=== PATIENT | female | born 1940 | race Caucasian/White ===

== ENCOUNTER 2022-07-19 07:00 | Day surgery (SDC) | payer MEDICARE, OTHER, SELFPAY ==
[2022-07-13 14:59] VITALS: BMI 24.8
--- NOTE | 2022-07-15 13:11 | HO.ANESPROP2 ---
Documented by User: Cari Erickson NP 07/15/22 13:12 HPI - Anesthesia Eval Consult details Narrative: 82yo F for Left Cataract Extraction IOL Insertion PCP cleared No previous cataract on record [facility] Past Medical History Medical History (Updated 07/13/22 @ 14:54 by Alee Xie, RN) Acid reflux Bilateral hearing loss Elevated cholesterol History of COVID-19 Hx of colonic polyp Pre-diabetes Surgical History Surgical History (Updated 07/13/22 @ 14:51 by Alee Xie RN) History of ear surgery History of meniscectomy of left knee History of tonsillectomy Hx of colonoscopy Social History Social History Are you a primary child care education coordinator to a significant other at home: No Do you presently have visiting nurse or other home services: No Patient Tobacco Use Status: Former Tobacco user Quit Date: 40 yrs ago Tobacco use type: Cigarette Second Hand Smoke Exposure: No Use of substances other than those prescribed or required for medical reasons: No Have you been hit, kicked, punched, or otherwise hurt by someone within the past year? If so, by whom?: No Are you DNR?: No Advance Directives: No Advance Directives Information Provided: Yes Advance Directives on File: No Recently lost weight without trying: No Eating poorly because of decreased appetite: No Nutrition Risks: No Nutritional Risk Patient : No Meds Allergies Allergy/AdvReac Type Severity Reaction Status Date / Time kiwi Allergy Unknown Verified 07/16/22 08:43 strawberry Allergy Unknown Verified 07/16/22 08:43 Sulfa (Sulfonamide Allergy Unknown Verified 07/16/22 08:42 Antibiotics) Home Medications Medication Instructions Recorded Confirmed Last Taken Type cholecalciferol (vitamin D3) 25 25 mcg PO DAILY 07/13/22 07/13/22 Unknown History mcg (1,000 unit) tablet (Vitamin D3) conjugated estrogens 0.625 mg/gram vaginal DAILY PRN as directed 07/13/22 Unknown History vaginal cream (Premarin) cyanocobalamin (vitamin B-12) 1,000 mcg PO DAILY 07/13/22 07/13/22 Unknown History 1,000 mcg tablet (Vitamin B-12) famotidine 20 mg tablet 1 tab PO BEDTIME 07/13/22 07/13/22 Unknown History Exam Exam Date and Time: July 15, 2022 1311 Height,Weight and Vital Signs: Height 5 ft 2 in Weight 61.689 kg Assessment and Plan Assessment Anesthesia Assessment: Chart Reviewed Documented by User: Josseline Perla MD 07/19/22 07:16 [facility] Past Medical History Medical History (Updated 07/13/22 @ 14:54 by Alee Xie, RN) Acid reflux Bilateral hearing loss Elevated cholesterol History of COVID-19 Hx of colonic polyp Pre-diabetes Family History Family history of problems with anesthesia: No Surgical History Surgical History (Updated 07/13/22 @ 14:51 by Alee Xie, RN) History of ear surgery History of meniscectomy of left knee History of tonsillectomy Hx of colonoscopy History of Problems with Anesthesia: No Social History Social History Are you a primary child care education coordinator to a significant other at home: No Do you presently have visiting nurse or other home services: No Patient Tobacco Use Status: Former Tobacco user Quit Date: 40 yrs ago Tobacco use type: Cigarette Second Hand Smoke Exposure: No Use of substances other than those prescribed or required for medical reasons: No Have you been hit, kicked, punched, or otherwise hurt by someone within the past year? If so, by whom?: No Are you DNR?: No Advance Directives: No Advance Directives Information Provided: Yes Advance Directives on File: No Recently lost weight without trying: No Eating poorly because of decreased appetite: No Nutrition Risks: No Nutritional Risk Patient : No Meds Allergies Allergy/AdvReac Type Severity Reaction Status Date / Time kiwi Allergy Unknown Verified 07/16/22 08:43 strawberry Allergy Unknown Verified 07/16/22 08:43 Sulfa (Sulfonamide Allergy Unknown Verified 07/16/22 08:42 Antibiotics) Home Medications Medication Instructions Recorded Confirmed Last Taken Type cholecalciferol (vitamin D3) 25 25 mcg PO DAILY 07/13/22 07/13/22 Unknown History mcg (1,000 unit) tablet (Vitamin D3) conjugated estrogens 0.625 mg/gram vaginal DAILY PRN as directed 07/13/22 Unknown History vaginal cream (Premarin) cyanocobalamin (vitamin B-12) 1,000 mcg PO DAILY 07/13/22 07/13/22 Unknown History 1,000 mcg tablet (Vitamin B-12) famotidine 20 mg tablet 1 tab PO BEDTIME 07/13/22 07/13/22 Unknown History Exam Airway Mallampati Class: II (Caps laterally) TM Dist: >3cm Neck ROM: Full Heart: rrr Lungs: cta Assessment and Plan Assessment Anesthesia Assessment: Anesthesia Plan Discussed Final Anesthetic Review Family History of Problems with Anesthesia: No History of Problems with Anesthesia: No NPO: Yes ASA Class: II Final Preanesthetic Review: No Changes in Pt Med Stat, Meds/Allgs Chart Reviewed and Consent Obtained/Reviewed Patient Risk: Intermediate Procedure Risk: Intermediate Anesthetic Plan Anesthetic Plan: MAC: Disposition: Standard PACU
--- NOTE | 2022-07-16 12:33 | MHC.SHP ---
Pre-Procedural Eval Section A Date of Service: 07/16/22 The patient is an INPATIENT: No Changes since office visit: No Cold of Flu in the past 2 weeks, No New Medical Problems, No Changes in Medication and No Patient answered all questions The History & Physical has been completed within 30 days and I have reviewed it.: Yes Section B Chief Complaint: Age-related nuclear cataract, left eye Allergies: Allergies Allergy/AdvReac Type Severity Reaction Status Date / Time kiwi Allergy Unknown Verified 07/16/22 08:43 strawberry Allergy Unknown Verified 07/16/22 08:43 Sulfa (Sulfonamide Allergy Unknown Verified 07/16/22 08:42 Antibiotics) Plan Diagnosis/Plan: Unchanged I have reviewed the history and physical and performed a pertinent physical examination on my patient. No changes have occurred unless specified.
[2022-07-19] MEDS: Tetracaine HCl/PF 0.5% Oph Sol 4 ML DROPS 1 DROP EYE-LEFT (07:22)
[2022-07-19] MEDS: Cyclopentolate 1 % Ophth Sol 2 ML DRPBTL 1 DROP EYE-LEFT ×3 (07:24→07:32)
[2022-07-19] MEDS: Tropicamide 1 % Ophth Sol 3 ML BTL 1 DROP EYE-LEFT ×3 (07:25→07:33)
[2022-07-19] MEDS: Ketorolac Tromethamine 0.5% Op 5 ML DROPS 1 DROP EYE-LEFT ×3 (07:26→07:34)
[2022-07-19] MEDS: Phenylephrine HCL 2.5% Oph SoL 2 ML BOTTLE 1 DROP EYE-LEFT ×3 (07:27→07:35)
[2022-07-19 07:40] VITALS: BP 156/72; PULSE 70; RESP 16; TEMP 36.4; O2SAT 98
[2022-07-19] MEDS: Lactated Ringers 500 ML 50 ML IV (07:41)
--- NOTE | 2022-07-19 08:02 | HO.PNOPHT ---
Ophthalmology Procedure Procedure Date of Service: 07/19/22 Ophthalmology Viscoelastic: Healjose antonio Avilest Dual Pack Pro Ophthalmology Lenses: TECPOPEYE [id number] (22) Procedure Notes: PREOPERATIVE DIAGNOSIS: Decreased visual acuity left eye secondary to cataract POSTOPERATIVE DIAGNOSIS: Same PROCEDURE: Left cataract extraction with intraocular lens insertion SURGEON: Quang Lopez M.D. ANESTHESIA: Topical/MAC ESTIMATED BLOOD LOSS: None COMPLICATIONS: None After obtaining informed consent, the patient was brought to the operation room suite and placed in the supine position. After adequate sedation per anesthesia, topical drops of Tetracaine were given to the left eye. The eye was then prepped and draped in the usual sterile fashion. The operating room microscope was then positioned over the operative eye and a lid speculum placed. A paracentesis was created. Viscoelastic was then instilled into the anterior chamber. A three plane incision was then created temporally, utilizing a 2.85 mm keratome. Capsulotomy forceps were then utilized to create a circular tear capsulotomy. Hydrodissection and hydrodelineation were carried out until adequate mobilization of the nucleus occurred. Phacoemulsification was then utilized to remove the dense central nucleus followed by removal of the cortical material utilizing the automated aspiration irrigation unit. Viscoat elastic was instilled into the posterior capsular bag followed by placement of a posterior chamber intraocular lens without difficulty. The residual Viscoat elastic was then removed utilizing the automated IA machine. The wound was check and found to be watertight. The patient tolerated the procedure well and the lid speculum was removed. Intracameral injection of Vigamox 0.1 mL followed by a subtenon injection of Kenalog-40 0.2 mL were administered. The patient will be seen in the a.m.
[2022-07-19 08:29] VITALS: BP 164/73; PULSE 64; RESP 18; TEMP 36.3; O2SAT 99
== END 2022-07-19 08:32 | disposition home or self-care (01) ==
PROVIDERS: PCP Nurse Practitioner Family; Visit Provider Ophthalmology
PROC: (CPT 66985; principal; 2022-07-19 09:10)
DX: H25.12 Age-related nuclear cataract, left eye (principal); H54.7 Unspecified visual loss; K21.9 Gastro-esophageal reflux disease without esophagitis; E78.00 Pure hypercholesterolemia, unspecified; M85.80 Other specified disorders of bone density and structure, unspecified site; R73.03 Prediabetes; Z79.899 Other long term (current) drug therapy; Z88.2 Allergy status to sulfonamides; Z86.16 Personal history of COVID-19; Z87.891 Personal history of nicotine dependence
CPT/HCPCS: 66984; J2250; J3300; V2632

== ENCOUNTER 2022-08-02 06:23 | Day surgery (SDC) | payer MEDICARE, OTHER, SELFPAY ==
[2022-07-13 15:02] VITALS: BMI 24.8
--- NOTE | 2022-07-27 12:40 | HO.ANESPROP2 ---
Documented by User: Cari Erickson NP 07/27/22 12:49 HPI - Anesthesia Eval Consult details Narrative: 82yo F for Right Cataract Extraction IOL Insertion PCP cleared Left eye 07/19/22 with MAC: Midaz 2 [facility] Past Medical History Medical History (Updated 07/13/22 @ 14:54 by Alee Xie, RN) Acid reflux Bilateral hearing loss Elevated cholesterol History of COVID-19 Hx of colonic polyp Pre-diabetes Family History Family history of problems with anesthesia: No Surgical History Surgical History (Updated 07/13/22 @ 14:51 by Alee Xie, SHEILA) History of ear surgery History of meniscectomy of left knee History of tonsillectomy Hx of colonoscopy History of Problems with Anesthesia: No Social History Social History Are you a primary client care representative to a significant other at home: No Do you presently have visiting nurse or other home services: No Patient Tobacco Use Status: Former Tobacco user Quit Date: 40 yrs ago Tobacco use type: Cigarette Second Hand Smoke Exposure: No Use of substances other than those prescribed or required for medical reasons: No Have you been hit, kicked, punched, or otherwise hurt by someone within the past year? If so, by whom?: No Are you DNR?: No Advance Directives: No Advance Directives Information Provided: Yes Advance Directives on File: No Recently lost weight without trying: No Eating poorly because of decreased appetite: No Nutrition Risks: No Nutritional Risk Meds Allergies Allergy/AdvReac Type Severity Reaction Status Date / Time kiwi Allergy Unknown Verified 07/16/22 08:43 strawberry Allergy Unknown Verified 07/16/22 08:43 Sulfa (Sulfonamide Allergy Unknown Verified 07/16/22 08:42 Antibiotics) Home Medications Medication Instructions Recorded Confirmed Last Taken Type cholecalciferol (vitamin D3) 25 25 mcg PO DAILY 07/13/22 07/13/22 Unknown History mcg (1,000 unit) tablet (Vitamin D3) conjugated estrogens 0.625 mg/gram vaginal DAILY PRN as directed 07/13/22 Unknown History vaginal cream (Premarin) cyanocobalamin (vitamin B-12) 1,000 mcg PO DAILY 07/13/22 07/13/22 Unknown History 1,000 mcg tablet (Vitamin B-12) famotidine 20 mg tablet 1 tab PO BEDTIME 07/13/22 07/13/22 Unknown History Exam Exam Date and Time: July 27, 2022 1240 Height,Weight and Vital Signs: Height 5 ft 2 in Weight 61.689 kg Assessment and Plan Assessment Anesthesia Assessment: Chart Reviewed Final Anesthetic Review Family History of Problems with Anesthesia: No History of Problems with Anesthesia: No Documented by User: Josseline Perla MD 08/02/22 07:39 PMF[facility] Past Medical History Medical History (Updated 07/13/22 @ 14:54 by Alee Xie, RN) Acid reflux Bilateral hearing loss Elevated cholesterol History of COVID-19 Hx of colonic polyp Pre-diabetes Surgical History Surgical History (Updated 07/13/22 @ 14:51 by Alee Xie, RN) History of ear surgery History of meniscectomy of left knee History of tonsillectomy Hx of colonoscopy Social History Social History Are you a primary client care representative to a significant other at home: No Do you presently have visiting nurse or other home services: No Patient Tobacco Use Status: Former Tobacco user Quit Date: 40 yrs ago Tobacco use type: Cigarette Second Hand Smoke Exposure: No Use of substances other than those prescribed or required for medical reasons: No Have you been hit, kicked, punched, or otherwise hurt by someone within the past year? If so, by whom?: No Are you DNR?: No Advance Directives: No Advance Directives Information Provided: Yes Advance Directives on File: No Recently lost weight without trying: No Eating poorly because of decreased appetite: No Nutrition Risks: No Nutritional Risk Meds Allergies Allergy/AdvReac Type Severity Reaction Status Date / Time kiwi Allergy Unknown Verified 07/16/22 08:43 strawberry Allergy Unknown Verified 07/16/22 08:43 Sulfa (Sulfonamide Allergy Unknown Verified 07/16/22 08:42 Antibiotics) Home Medications Medication Instructions Recorded Confirmed Last Taken Type cholecalciferol (vitamin D3) 25 25 mcg PO DAILY 07/13/22 07/13/22 Unknown History mcg (1,000 unit) tablet (Vitamin D3) conjugated estrogens 0.625 mg/gram vaginal DAILY PRN as directed 07/13/22 Unknown History vaginal cream (Premarin) cyanocobalamin (vitamin B-12) 1,000 mcg PO DAILY 07/13/22 07/13/22 Unknown History 1,000 mcg tablet (Vitamin B-12) famotidine 20 mg tablet 1 tab PO BEDTIME 07/13/22 07/13/22 Unknown History Exam Airway Mallampati Class: II (Caps lateral) TM Dist: >3cm Neck ROM: Full Heart: rrr Lungs: cta Assessment and Plan Assessment Anesthesia Assessment: Anesthesia Plan Discussed Final Anesthetic Review NPO: Yes ASA Class: II Final Preanesthetic Review: No Changes in Pt Med Stat, Meds/Allgs Chart Reviewed and Consent Obtained/Reviewed Patient Risk: Intermediate Procedure Risk: Intermediate Anesthetic Plan Anesthetic Plan: MAC: Disposition: Standard PACU
--- NOTE | 2022-07-28 08:19 | MHC.SHP ---
Pre-Procedural Eval Section A Date of Service: 07/28/22 The patient is an INPATIENT: No Changes since office visit: No Cold of Flu in the past 2 weeks, No New Medical Problems, No Changes in Medication and No Patient answered all questions The History & Physical has been completed within 30 days and I have reviewed it.: Yes Section B Chief Complaint: Age-related nuclear cataract, right eye Allergies: Allergies Allergy/AdvReac Type Severity Reaction Status Date / Time kiwi Allergy Unknown Verified 07/16/22 08:43 strawberry Allergy Unknown Verified 07/16/22 08:43 Sulfa (Sulfonamide Allergy Unknown Verified 07/16/22 08:42 Antibiotics) Plan Diagnosis/Plan: Unchanged I have reviewed the history and physical and performed a pertinent physical examination on my patient. No changes have occurred unless specified.
[2022-08-02 06:45] VITALS: BP 138/60; PULSE 76; RESP 16; TEMP 36.4; O2SAT 99
[2022-08-02] MEDS: Tetracaine HCl/PF 0.5% Oph Sol 4 ML DROPS 1 DROP EYE-RIGHT (06:53)
[2022-08-02] MEDS: Lactated Ringers 500 ML 50 ML IV (06:57)
[2022-08-02] MEDS: Cyclopentolate 1 % Ophth Sol 2 ML DRPBTL 1 DROP EYE-RIGHT ×3 (06:57→07:08)
[2022-08-02] MEDS: Ketorolac Tromethamine 0.5% Op 5 ML DROPS 1 DROP EYE-RIGHT ×3 (06:59→07:10)
[2022-08-02] MEDS: Tropicamide 1 % Ophth Sol 3 ML BTL 1 DROP EYE-RIGHT ×3 (07:00→07:09)
[2022-08-02] MEDS: Phenylephrine HCL 2.5% Oph SoL 2 ML BOTTLE 1 DROP EYE-RIGHT ×3 (07:02→07:11)
--- NOTE | 2022-08-02 11:04 | HO.PNOPHT ---
Ophthalmology Procedure Procedure Date of Service: 08/02/22 Ophthalmology Viscoelastic: Healjose antonio Duet Dual Pack Pro Ophthalmology Lenses: TECPOPEYE [id number] (22) Procedure Notes: PREOPERATIVE DIAGNOSIS: Decreased visual acuity left eye secondary to cataract POSTOPERATIVE DIAGNOSIS: Same PROCEDURE: Left cataract extraction with intraocular lens insertion SURGEON: Quang Lopez M.D. ANESTHESIA: Topical/MAC ESTIMATED BLOOD LOSS: None COMPLICATIONS: None After obtaining informed consent, the patient was brought to the operation room suite and placed in the supine position. After adequate sedation per anesthesia, topical drops of Tetracaine were given to the left eye. The eye was then prepped and draped in the usual sterile fashion. The operating room microscope was then positioned over the operative eye and a lid speculum placed. A paracentesis was created. Viscoelastic was then instilled into the anterior chamber. A three plane incision was then created temporally, utilizing a 2.85 mm keratome. Capsulotomy forceps were then utilized to create a circular tear capsulotomy. Hydrodissection and hydrodelineation were carried out until adequate mobilization of the nucleus occurred. Phacoemulsification was then utilized to remove the dense central nucleus followed by removal of the cortical material utilizing the automated aspiration irrigation unit. Viscoat elastic was instilled into the posterior capsular bag followed by placement of a posterior chamber intraocular lens without difficulty. The residual Viscoat elastic was then removed utilizing the automated IA machine. The wound was check and found to be watertight. The patient tolerated the procedure well and the lid speculum was removed. Intracameral injection of Vigamox 0.1 mL followed by a subtenon injection of Kenalog-40 0.2 mL were administered. The patient will be seen in the a.m.
--- NOTE | 2022-08-02 11:05 | HO.PNOPHT ---
Ophthalmology Procedure Procedure Date of Service: 08/02/22 Ophthalmology Viscoelastic: Mai Avilest Dual Pack Pro Ophthalmology Lenses: TECPOPEYE [id number] (22) Procedure Notes: PREOPERATIVE DIAGNOSIS: Decreased visual acuity right eye secondary to cataract POSTOPERATIVE DIAGNOSIS: Same PROCEDURE: Right cataract extraction with intraocular lens insertion SURGEON: Quang Lopez M.D. ANESTHESIA: Topical/MAC ESTIMATED BLOOD LOSS: None COMPLICATIONS: None After obtaining informed consent, the patient was brought to the operating room suite and placed in the supine position. After adequate sedation per anesthesia, topical drops of Tetracaine were given to the right eye. The eye was then prepped and draped in the usual sterile fashion. The operating room microscope was then positioned over the operative eye and a lid speculum placed. A paracentesis was created. Viscoelastic was then instilled into the anterior chamber. A three plane incision was then created temporally, utilizing a 2.85 mm keratome. Capsulotomy forceps were then utilized to create a circular tear capsulotomy. Hydrodissection and hydrodelineation were carried out until adequate mobilization of the nucleus occurred. Phacoemulsification was then utilized to remove the dense central nucleus followed by removal of the cortical material utilizing the automated aspiration irrigation unit. Viscoelastic was instilled into the posterior capsular bag followed by placement of a posterior chamber intraocular lens without difficulty. The residual Viscoelastic was then removed utilizing the automated IA machine. The wound was checked and found to be watertight. The patient tolerated the procedure well and the lid speculum was removed. Intracameral injection of Vigamox 0.1 mL followed by a subtenon injection of Kenalog-40 0.2 mL were administered. The patient will be seen in the a.m.
[2022-08-02 11:41] VITALS: BP 145/67; PULSE 73; RESP 18; TEMP 36.6; O2SAT 98
== END 2022-08-02 11:51 | disposition home or self-care (01) ==
PROVIDERS: PCP Nurse Practitioner Family; Visit Provider Ophthalmology
PROC: (CPT 66985; principal; 2022-08-02 09:00)
DX: H25.11 Age-related nuclear cataract, right eye (principal); H54.7 Unspecified visual loss; E78.00 Pure hypercholesterolemia, unspecified; R73.03 Prediabetes; H91.93 Unspecified hearing loss, bilateral; M85.80 Other specified disorders of bone density and structure, unspecified site; Z79.899 Other long term (current) drug therapy; Z88.2 Allergy status to sulfonamides; Z87.891 Personal history of nicotine dependence; Z86.16 Personal history of COVID-19
CPT/HCPCS: 66984; J2250; J3300; J7999; V2632